=== PATIENT | male | born 1940 | race Caucasian/White ===

== ENCOUNTER 2017-12-15 17:25 | Observation (INO) | payer MEDICARE ==
[~2017-12-15] VITALS: Ht 172.7 cm; Wt 75.0 kg
[2017-12-15 20:09] VITALS: BP 116/65
[2017-12-15] MEDS ORDERED: PLEASE ENTER ALLERGIES MC SCH (21:30)
[2017-12-15] MEDS ORDERED: OXYcodone/APAP 5/325MG TABLET PO PRN (21:30)
[2017-12-15] MEDS ORDERED: ONDANSETRON 2MG/ML, 2ML IVPush PRN (21:30)
[2017-12-15] MEDS: D5%-0.45% NACL 1,000 ML IV SCH (23:56)
[2017-12-16 01:16] VITALS: BP 121/63
[2017-12-16 05:21] LABS: BASOPHILS # (AUTO) 0.03 x10^3/uL (0-0.1); BASOPHILS % (AUTO) 0 % (0-1); EOSINOPHILS % (AUTO) 0 % (1-7); LYMPHOCYTES # (AUTO) 1.33 x10^3/uL (1-3.4); LYMPHOCYTES % (AUTO) 11 % (22-44); MD NO; MEAN CORPUSCULAR VOLUME 103.1 fL (81-97); MEAN PLATELET VOLUME 9.8 fL (7.4-10.4); MONOCYTES # (AUTO) 1.04 x10^3/uL (0.2-0.8); MONOCYTES % (AUTO) 9 % (2-9); NEUTROPHILS # (AUTO) 9.66 x10^3/uL (1.8-6.8); NEUTROPHILS % (AUTO) 80 % (42-75); PLATELET COUNT 223 x10^3/uL (130-400); RED BLOOD COUNT 4.11 x10^6/uL (4.38-5.82); RED CELL DISTRIBUTION WIDTH 14.4 % (9.4-14.8)
[2017-12-16 05:29] LABS: ANION GAP 8 mmol/L (5-15); CALCIUM 9.2 mg/dL (8.5-10.1); CHLORIDE 111 mmol/L (98-107); CREATININE 1.65 mg/dL (0.7-1.3)
[2017-12-16 07:58] VITALS: BP 131/66
[2017-12-16] MEDS ORDERED: SENNA/DOCUSATE TABLET PO SCH (09:00)
[2017-12-16] MEDS ORDERED: ENALAPRIL 10 MG TABLET PO SCH (09:00)
[2017-12-16] MEDS: D5%-0.45% NACL 1,000 ML IV SCH (11:09)
[2017-12-16 12:43] VITALS: BP 143/53
[2017-12-16] MEDS ORDERED: TAMSULOSIN 0.4 MG CAP.ER.24H PO ONE (13:30)
[2017-12-16] MEDS ORDERED: TAMS-11 PO (15:20)
[2017-12-16 15:57] VITALS: BP 147/53
[2017-12-17] MEDS ORDERED: AZATHIOPRINE 50 MG TABLET PO SCH (09:00)
== END 2017-12-16 16:10 | disposition home or self-care (01) ==
LOC: 4NOR 19:30 → INTOOBSV 19:30
PROVIDERS: ADMIT Neurological Surgery; ATTEND Neurological Surgery
DX: M43.26 Fusion of spine, lumbar region (principal); Z98.890 Other specified postprocedural states
CPT/HCPCS: 36415; 80048; 85025; 96360; 96361; G0378